=== PATIENT | male | born 1960 | race Caucasian/White ===

== ENCOUNTER 2019-02-17 14:45 | Emergency (ER) | payer BC, SELFPAY ==
[2019-02-17] MEDS ORDERED: Zofran 4 MG/2 ML VIAL IV ONE (14:49)
[2019-02-17] MEDS ORDERED: BABY ASPIRIN 81 MG CHEW PO ONE (14:49)
[2019-02-17] MEDS ORDERED: Sodium Chloride 0.9% 1000 ML 1,000 ML IV STA (14:49)
[2019-02-17] MEDS ORDERED: solu-MEDROL 125 MG IV ONE (14:50)
[2019-02-17] MEDS ORDERED: DUONEB 0.5-3 MG/3 ml Neb IH ONE ×4 (14:50→17:47)
[2019-02-17] MEDS ORDERED: TYLENOL EXTRA STRENGTH 500 MG PO STA (14:51)
[2019-02-17] MEDS ORDERED: MOTRIN 600 MG PO ONE (14:51)
--- NOTE | 2019-02-17 14:57 | ERPHSYRPT ---
- History of Present Illness Time Seen by Provider: 02/17/19 14:48 Source: patient Exam Limitations: no limitations Physician History: Patient is here with 3 days of flu-like symptoms. h/o smoking, no falls or trauma. He has generalized malaise, fever, cough, congestion. He denies any chest pain or neck pain. No signs or symptoms of meningitis. Location: generalized Quality: malaise Radiation: none Severity: moderate Duration: 3 days Timing: gradual Modifying factors/associated signs and symptoms: OTC home medication Allergies/Adverse Reactions: ciprofloxacin [From Cipro] Allergy (Verified 02/17/19 14:58) - Review of Systems Constitutional: Fever, Chills, Malaise Eyes: No Symptoms Ears, Nose, & Throat: Nose Congestion Respiratory: Cough, No Dyspnea Cardiac: No Chest Pain, No Edema, No Syncope Abdominal/Gastrointestinal: No Abdominal Pain, No Nausea, No Vomiting, No Diarrhea Genitourinary Symptoms: No Dysuria Musculoskeletal: No Back Pain, No Neck Pain Skin: No Rash Neurological: No Dizziness, No Focal Weakness, No Sensory Changes Psychological: No Symptoms Endocrine: No Symptoms All Other Systems: Reviewed and Negative - Nursing Vital Signs Nursing Vital Signs: Initial Vital Signs Temperature 101.7 F 02/17/19 14:52 Pulse Rate 97 H 02/17/19 14:52 Respiratory Rate 30 H 02/17/19 14:52 Blood Pressure 157/85 02/17/19 14:52 O2 Sat by Pulse Oximetry 93 L 02/17/19 14:52 Pain Scale Pain Intensity 4 - Physical Exam General Appearance: no apparent distress, alert Eye Exam: PERRL/EOMI, eyes nml inspection Ears, Nose, Throat Exam: normal ENT inspection, TMs normal, pharynx normal, moist mucous membranes Neck Exam: normal inspection, non-tender, supple, full range of motion Respiratory Exam: normal breath sounds, wheezing, No respiratory distress Cardiovascular Exam: regular rate/rhythm, normal heart sounds Gastrointestinal/Abdomen Exam: soft, No tenderness Back Exam: normal inspection, No CVA tenderness, No vertebral tenderness Extremity Exam: normal inspection, normal range of motion Neurologic Exam: alert, oriented x 3, cooperative, normal mood/affect, sensation nml, No motor deficits Skin Exam: normal color, warm, dry, No rash Lymphatic Exam: No adenopathy Ordered Tests: Active Orders 24 hr Category Date Time Status Admitting Representative STAT Care 02/17/19 14:50 Active EKG-ER Only STAT Care 02/17/19 14:49 Active IV Insertion STAT Care 02/17/19 14:49 Active ABDOMEN AND PELVIS W CONTRAST [CT] Stat Exams 02/17/19 16:08 Taken CHEST 2 VIEWS (PA AND LAT) Stat Exams 02/17/19 14:49 Taken CHEST WITH CONTRAST [CT] Stat Exams 02/17/19 16:07 Taken ARTERIAL BLOOD GASES Stat Lab 02/17/19 14:50 Completed CBC W DIFF Stat Lab 02/17/19 15:10 Completed CMP Stat Lab 02/17/19 15:10 Completed Manual Differential NC Stat Lab 02/17/19 15:10 Completed NT PRO BNP Stat Lab 02/17/19 15:10 Completed TROPONIN Q3H Lab 02/17/19 15:10 Completed TROPONIN Q3H Lab 02/17/19 18:48 Received TROPONIN Q3H Lab 02/17/19 21:00 Ordered TROPONIN Q3H Lab 02/18/19 00:00 Ordered TROPONIN Q3H Lab 02/18/19 03:00 Ordered Peak Expiratory Flow Rate ONCE RT 02/17/19 15:54 Completed Respiratory Therapy Assessment DAILY RT 02/17/19 15:54 Completed Medication Summary Discontinued Medications Generic Name Dose Route Start Last Admin Trade Name Freq PRN Reason Stop Dose Admin Acetaminophen 1,000 mg 02/17/19 14:51 02/17/19 15:17 Tylenol Extra Strength 500 Mg PO 02/17/19 14:52 1,000 mg STAT STA Administration Acetaminophen Confirm 02/17/19 15:13 Tylenol Extra Strength 500 Mg Administered 02/17/19 15:14 Dose 1,000 mg .ROUTE .STK-MED ONE Albuterol/Ipratropium 3 ml 02/17/19 14:50 02/17/19 15:51 Duoneb 0.5-3 Mg/3 Ml Neb IH 02/17/19 14:51 3 ml STAT ONE Administration Albuterol/Ipratropium Confirm 02/17/19 15:24 Duoneb 0.5-3 Mg/3 Ml Neb Administered 02/17/19 15:25 Dose 3 ml IH .STK-MED ONE Albuterol/Ipratropium 3 ml 02/17/19 17:36 02/17/19 18:00 Duoneb 0.5-3 Mg/3 Ml Neb IH 02/17/19 17:37 3 ml STAT ONE Administration Albuterol/Ipratropium Confirm 02/17/19 17:47 Duoneb 0.5-3 Mg/3 Ml Neb Administered 02/17/19 17:48 Dose 3 ml IH .STK-MED ONE Aspirin 324 mg 02/17/19 14:49 02/17/19 15:17 Baby Aspirin 81 Mg Chew PO 02/17/19 14:50 324 mg STAT ONE Administration Aspirin Confirm 02/17/19 15:12 Baby Aspirin 81 Mg Chew Administered 02/17/19 15:13 Dose 324 mg .ROUTE .STK-MED ONE Sodium Chloride 1,000 mls @ 999 mls/hr 02/17/19 14:49 02/17/19 16:24 Sodium Chloride 0.9% 1000 Ml IV 02/17/19 15:49 Infused .Q1H1M STA Infusion Sodium Chloride Confirm 02/17/19 15:12 Sodium Chloride 0.9% 1000 Ml Administered 02/17/19 15:13 Dose 1,000 mls @ ud .ROUTE .STK-MED ONE Ibuprofen 600 mg 02/17/19 14:51 02/17/19 15:17 Motrin 600 Mg PO 02/17/19 14:52 600 mg STAT ONE Administration Ibuprofen Confirm 02/17/19 15:13 Motrin 600 Mg Administered 02/17/19 15:14 Dose 600 mg .ROUTE .STK-MED ONE Methylprednisolone Sodium Succinate 125 mg 02/17/19 14:50 02/17/19 15:16 Solu-Medrol 125 Mg IV 02/17/19 14:51 125 mg STAT ONE Administration Methylprednisolone Sodium Succinate Confirm 02/17/19 15:13 Solu-Medrol 125 Mg Administered 02/17/19 15:14 Dose 125 mg .ROUTE .STK-MED ONE Ondansetron HCl 4 mg 02/17/19 14:49 02/17/19 15:16 Zofran 4 Mg/2 Ml Vial IV 02/17/19 14:50 4 mg STAT ONE Administration Ondansetron HCl Confirm 02/17/19 15:12 Zofran 4 Mg/2 Ml Vial Administered 02/17/19 15:13 Dose 4 mg .ROUTE .STK-MED ONE Lab/Rad Data: Laboratory Result Diagrams 02/17/19 15:10 02/17/19 15:10 Laboratory Results 02/17/19 02/17/19 02/17/19 Range/Units 15:10 15:10 15:10 WBC 10.6 H (4.0-10.5) K/mm3 RBC 5.18 (4.1-5.6) M/mm3 Hgb 13.9 (12.5-18.0) gm/dl Hct 43.5 (42-50) % MCV 84.0 (78-100) fl MCH 26.8 (26-32) pg MCHC 32.0 (32-36) g/dl RDW 15.0 H (11.5-14.0) % Plt Count 337 (150-450) K/mm3 MPV 11.2 H (7.5-11.0) fl Segmented Neutrophils 56 (36.-66.) % Band Neutrophils 20 H (0.0-2.0) % Lymphocytes (Manual) 12 L (24-44) % Monocytes (Manual) 12 (0.0-12.0) % Platelet Estimate NORMAL (NORMAL) RBC Morphology NORMAL Puncture Site pCO2 (35-45) mmHg pO2 (75-100) mmHg Base Excess (-2.0-2.0) O2 Saturation (94-100) g/dF ABG pH (7.35-7.45) ABG HCO3 (22-28) ABG O2 Sat (Measured) (95-100) % Abraham Test A-a Gradient a/A Ratio Hemoglobin Carboxyhemoglobin (0.0-6.9) % THgb Methemoglobin (1.4-1.5) % Potassium 4.2 (3.5-5.1) Temperature C POC O2 Flow Rate % Sodium 139 (137-145) mmol/L Chloride 100 (98-107) mmol/L Carbon Dioxide 25 (22-30) mmol/L Anion Gap 19.0 H (5-15) MEQ/L BUN 16 (9-20) mg/dL Creatinine 0.92 (0.66-1.25) mg/dL Estimated GFR > 60.0 ML/MIN Glucose 168 H (74-106) mg/dL Calcium 10.3 H (8.4-10.2) mg/dL Total Bilirubin 2.20 H (0.2-1.3) mg/dL AST 29 (17-59) U/L ALT 16 (0-50) U/L Alkaline Phosphatase 82 (38-126) U/L Troponin I < 0.012 (0.000-0.034) ng/mL NT-Pro-B Natriuret Pep 301 (0-900) pg/mL Serum Total Protein 9.9 H (6.3-8.2) g/dL Albumin 4.8 (3.5-5.0) g/dL Influenza Type A Ag (NEGATIVE) Influenza Type B Ag (NEGATIVE) RSV (PCR) (Negative) 02/17/19 02/17/19 Range/Units 14:50 14:45 WBC (4.0-10.5) K/mm3 RBC (4.1-5.6) M/mm3 Hgb (12.5-18.0) gm/dl Hct (42-50) % MCV (78-100) fl MCH (26-32) pg MCHC (32-36) g/dl RDW (11.5-14.0) % Plt Count (150-450) K/mm3 MPV (7.5-11.0) fl Segmented Neutrophils (36.-66.) % Band Neutrophils (0.0-2.0) % Lymphocytes (Manual) (24-44) % Monocytes (Manual) (0.0-12.0) % Platelet Estimate (NORMAL) RBC Morphology Puncture Site LEFT BRACHIAL pCO2 31 L (35-45) mmHg pO2 59 L (75-100) mmHg Base Excess 1.0 (-2.0-2.0) O2 Saturation 92.5 L (94-100) g/dF ABG pH 7.49 H (7.35-7.45) ABG HCO3 23.6 (22-28) ABG O2 Sat (Measured) 93.2 L (95-100) % Abraham Test NOT APPLICABLE A-a Gradient 52 a/A Ratio 0.53 Hemoglobin 13.2 Carboxyhemoglobin 0.6 (0.0-6.9) % THgb Methemoglobin 0.2 L (1.4-1.5) % Potassium 4.1 (3.5-5.1) Temperature 37.0 C POC O2 Flow Rate 21 % Sodium (137-145) mmol/L Chloride (98-107) mmol/L Carbon Dioxide (22-30) mmol/L Anion Gap (5-15) MEQ/L BUN (9-20) mg/dL Creatinine (0.66-1.25) mg/dL Estimated GFR ML/MIN Glucose (74-106) mg/dL Calcium (8.4-10.2) mg/dL Total Bilirubin (0.2-1.3) mg/dL AST (17-59) U/L ALT (0-50) U/L Alkaline Phosphatase (38-126) U/L Troponin I (0.000-0.034) ng/mL NT-Pro-B Natriuret Pep (0-900) pg/mL Serum Total Protein (6.3-8.2) g/dL Albumin (3.5-5.0) g/dL Influenza Type A Ag NEGATIVE (NEGATIVE) Influenza Type B Ag NEGATIVE (NEGATIVE) RSV (PCR) NEGATIVE (Negative) - Progress Progress: improved Air Movement: good Progress Note: 02/17/19 14:56 - We'll obtain basic labs, fluids, EKG, troponin, chest x-ray - I feel comfortable with one time negative troponin given symptoms have improved and started greater then 6 hours ago. - EKG shows no ST changes - my read. See full read below. - CXR shows no pneumonia, pneumothorax - my read - fluids, breathing treatment, steroids - O2 saturations consistently greater than 95%. 02/17/19 19:01 We did obtain a CT scan of chest and abdomen. Patient has possible PNA on CT scan. He has several pulmonary nodules. I did discuss this with the patient. He has follow up with his pulmonoloigst this week. He will return here for any new or changing symptoms. - Departure Departure Disposition: Home Clinical Impression: PNA (pneumonia) Condition: Stable Critical Care Time: No Referrals: DOMINIQUE GABRIEL [Primary Care Provider] - Instructions: Pneumonia, Adult (DC), Cough, Adult (DC) Prescriptions: Azithromycin 250 mg [Zithromax 250 MG TABLET] 250 mg PO ZPACK #6 tablet Levofloxacin [Levaquin 500 MG Tablet] 750 mg PO DAILY #7 tablet
[2019-02-17] MEDS ORDERED: Zofran 4 MG/2 ML VIAL ONE (15:12)
[2019-02-17] MEDS ORDERED: BABY ASPIRIN 81 MG CHEW ONE (15:12)
[2019-02-17] MEDS ORDERED: Sodium Chloride 0.9% 1000 ML 1,000 ML ONE (15:12)
[2019-02-17] MEDS ORDERED: solu-MEDROL 125 MG ONE (15:13)
[2019-02-17] MEDS ORDERED: TYLENOL EXTRA STRENGTH 500 MG ONE (15:13)
[2019-02-17] MEDS ORDERED: MOTRIN 600 MG ONE (15:13)
[2019-02-17 15:25] LABS: Hematocrit 43.5 % (42-50); Hemoglobin 13.9 gm/dl (12.5-18.0); Mean Corpuscular Hemoglobin 26.8 pg (26-32); Mean Platelet Volume 11.2 fl (7.5-11.0); Platelet Count 337 K/mm3 (150-450); Red Blood Count 5.18 M/mm3 (4.1-5.6); White Blood Count 10.6 K/mm3 (4.0-10.5)
[2019-02-17 15:37] LABS: A-aADO2 52; ABG HEMOGLOBIN 13.2; ABG POTASSIUM 4.1 (3.5-5.1); ARTERIAL BLD GAS O2 SATURATION 93.2 % (95-100); ARTERIAL BLOOD GAS FIO2 21 %; ARTERIAL BLOOD GAS PCO2 31 mmHg (35-45); ARTERIAL BLOOD GAS PO2 59 mmHg (75-100); ARTERIAL BLOOD GAS pH 7.49 (7.35-7.45); CARBOXYHEMOGLOBIN 0.6 % THgb (0.0-6.9); HCO3- 23.6 (22-28); HGB O2 SAT 92.5 g/dF (94-100); Methhemoglobin 0.2 % (1.4-1.5); paO2 pAO1 0.53
[2019-02-17 15:38] LABS: ABG SITE LEFT BRACHIAL
[2019-02-17 15:40] LABS: INFLUENZA A NEGATIVE (NEGATIVE); INFLUENZA B NEGATIVE (NEGATIVE); RESPIRATORY SYNCTIAL VIRUS NEGATIVE (Negative)
[2019-02-17 15:49] LABS: ALBUMIN 4.8 g/dL (3.5-5.0); ALKALINE PHOSPHATASE 82 U/L (38-126); BLOOD UREA NITROGEN 16 mg/dL (9-20); CHLORIDE 100 mmol/L (98-107); Calcium 10.3 mg/dL (8.4-10.2); Carbon Dioxide 25 mmol/L (22-30); Creatinine 1 0.92 mg/dL (0.66-1.25); Glucose 168 mg/dL (74-106); NT PRO BNP 301 pg/mL (0-900); Potassium 4.2 mmol/L (3.5-5.1); SGOT/AST 29 U/L (17-59); SGPT/ALT 16 U/L (0-50); SODIUM 139 mmol/L (137-145); Total Protein 9.9 g/dL (6.3-8.2)
[2019-02-17 16:00] LABS: BAND 20 % (0.0-2.0); Lymphocytes 12 % (24-44); Monocyte 12 % (0.0-12.0); Neutrophils 56 % (36.-66.); Platelet Estimate NORMAL (NORMAL); Total Cells Counted 100
[2019-02-17] MEDS ORDERED: Zithromax 250 MG TABLET PO ONE (19:10)
[2019-02-17] MEDS ORDERED: Levofloxacin 250MG Tablet PO ONE (19:11)
[2019-02-17] MEDS ORDERED: Levofloxacin 250MG Tablet ONE (19:13)
[2019-02-17] MEDS ORDERED: Zithromax 250 MG TABLET ONE (19:13)
[2019-02-17 19:22] VITALS: BP 132/74; PULSE 81; O2SAT 98
--- NOTE | 2019-02-17 19:46 | XRAY ---
Indication: Short of breath. Productive cough and congestion 3 days. Multiple contiguous axial images obtained through the chest using 100 cc Isovue 370 contrast. Comparison: None Study slightly degraded by respiration artifact. Minimal tree-in-bud opacity seen in the periphery of both upper lobes favor pneumonitis. Minimal atelectasis/scarring in the posterior right upper lobe. No consolidation or effusion. Lateral left lower lobe demonstrates two sub-5 mm peripheral and one right lower lobe subpleural noncalcified micronodules. Heart is not enlarged. Aorta is normal in course and caliber. Left suprahilar calcified node. No pathologic mediastinal/hilar lymphadenopathy. Bony thorax intact with minimal degenerative changes throughout the spine. CT abdomen/pelvis reported separately. Impression: 1. Minimal bilateral upper lobe [id number] opacities favor pneumonitis. 2. Peripheral left and right lower lobe noncalcified micronodules. Findings possibly granulomatous in this demographic and given left hilar calcified myeloma. Consider follow-up per Fleischner guidelines. Comment: Preliminary interpretation was made by [facility]. No critical discrepancy.
--- NOTE | 2019-02-17 19:52 | XRAY ---
Indication: Productive cough/congestion 3 days. Short of breath. Elevated bilirubin. Multiple contiguous axial images obtained through the abdomen and pelvis using 100 cc Isovue 370 contrast only. Comparison: None CT chest reported separately. Noncontrasted stomach and bowel loops appear nonobstructed. Normal appendix. There is mild/moderate scattered fecal debris throughout including the rectum. No free fluid/air. Mild fatty hepatomegaly and calcified splenic granulomas. 4 mm right lower renal cortical cyst. Remaining liver, gallbladder, pancreas, spleen, adrenal glands, kidneys, ureters, and bladder appear unremarkable. Mild scattered aortoiliac calcifications. 3.8 cm infrarenal AAA. Osseous structures intact with minimal degenerative changes throughout the spine. Impression: 1. Diffuse fecal stasis without obstruction. 2. Scattered arteriosclerotic disease with 3.8 cm distal AAA. 3. Fatty hepatomegaly, tiny right renal cyst, and evidence for old granulomatous disease. Comment: Preliminary interpretation was made by [facility]. No critical discrepancy.
--- NOTE | 2019-02-17 19:54 | XRAY ---
Indication: Productive cough and congestion for 3 days. Comparison: November 17, 2012. PA/lateral chest again hyperinflated. There is now mild scattered bilateral interstitial opacities, possible pneumonitis. No focal infiltrate, consolidation, or large effusion. Heart is not enlarged. Stable left suprahilar calcified node. Bony thorax intact again with minimal degenerative changes. Impression: 1. New bilateral interstitial opacities, possible pneumonitis in the right clinical setting. 2. Stable COPD and evidence for old granulomatous disease.
== END 2019-02-17 19:20 | disposition home or self-care (01) ==
LOC: ED 14:45
DX: J18.9 Pneumonia, unspecified organism (principal)
CPT/HCPCS: 36415; 36600; 71046; 71260; 74177; 80053; 82375; 82803; 83880; 84484; 85025; 87631; 93005; 93041; 94150; 94640; 96360; 96374; 96375; 99284; J2405; J2930; A9270-GY

== ENCOUNTER 2021-11-21 13:06 | Observation (INO) | payer BC ==
[2021-11-21] MEDS ORDERED: solu-MEDROL 125 MG, Sterile H2O 10 ml 2 ML IV ONE ×2 (13:25)
[2021-11-21] MEDS ORDERED: DUONEB 0.5-3 MG/3 ml Neb IH ONE ×2 (13:25→13:33)
[2021-11-21] MEDS ORDERED: ROCEPHIN 2 Gm-D5w 50ML BAG** 2 G/50 ML IVPB IV STA (13:26)
[2021-11-21] MEDS ORDERED: Zithromax 500 MG/ 250 ML NaCl Premix 500 MG/250 ML IVPB IV STA (13:26)
[2021-11-21 14:03] LABS: Absolute Neutrophil Ct (ANC) 8.09 x10^3/uL (1.4-6.9); Basophil (Absolute #) 0.02 x10^3/uL (0-0.4); Eosinophil % 0.1 % (0.00-5.0); Eosinophil (Absolute #) 0.01 x10^3/uL (0-0.5); Hematocrit 43.4 % (42-50); Hemoglobin 13.2 g/dL (12.5-18.0); Lymphocyte (Absolute #) 0.84 x10^3/uL (1.0-4.6); Lymphocytes % 7.9 % (24.0-44.0); Mean Cell Volume 84.8 fL (78-100); Mean Corpuscular Hemoglobin 25.8 pg (26-32); Mean Corpuscular Hgb Concent. 30.4 g/dL (32-36); Mean Platelet Volume 10.8 fL (7.5-11.0); Monocyte (Absolute #) 1.65 x10^3/uL (0.0-1.3); Monocytes % 15.5 % (0.0-12.0); Neutrophil % 76.1 % (36.0-66.0); Platelet Count 287 x10^3/uL (150-450); Red Blood Count 5.12 x10^6/uL (4.1-5.6); Red Cell Distribution Width 14.4 % (11.5-14.0); White Blood Count 10.6 x10^3/uL (4.0-10.5)
[2021-11-21] MEDS ORDERED: ROCEPHIN 1 Gm-D5w 50 ml Bag** 0 G/0 ML IVPB IV ONE (14:12)
[2021-11-21] MEDS ORDERED: Sterile H2O 10 ml IJ ONE ×2 (14:12→23:27)
[2021-11-21] MEDS ORDERED: solu-MEDROL ONE ×3 (14:12→23:27)
[2021-11-21] MEDS ORDERED: ROCEPHIN 2 Gm-D5w 50ML BAG** 2 G/50 ML IVPB IV ONE (14:13)
[2021-11-21 14:24] LABS: ALBUMIN 4.3 g/dL (3.5-5.0); ALKALINE PHOSPHATASE 81 U/L (38-126); ANION GAP 17.4 MEQ/L (5-15); BLOOD UREA NITROGEN 15 mg/dL (9-20); CHLORIDE 96 mmol/L (98-107); Calcium 9.2 mg/dL (8.4-10.2); Carbon Dioxide 27 mmol/L (22-30); Creatinine 1 0.79 mg/dL (0.66-1.25); EST GLOMERULAR FILTRATION RATE > 60.0 ML/MIN; Glucose 172 mg/dL (74-106); NT PRO BNP 376 pg/mL (0-900); Potassium 3.9 mmol/L (3.5-5.1); SGOT/AST 20 U/L (17-59); SGPT/ALT 17 U/L (0-50); SODIUM 137 mmol/L (137-145); Total Protein 8.4 g/dL (6.3-8.2)
[2021-11-21 14:42] LABS: INFLUENZA A NEGATIVE (NEGATIVE); INFLUENZA B NEGATIVE (NEGATIVE); RESPIRATORY SYNCTIAL VIRUS NEGATIVE (Negative); SARS-CoV-2 Xpert Express NEGATIVE (NEGATIVE)
[2021-11-21] MEDS ORDERED: Zithromax 500 MG/ 250 ML NaCl Premix 500 MG/250 ML IVPB IV ONE (15:00)
--- NOTE | 2021-11-21 15:48 | ERPHSYRPT ---
- History of Present Illness Time Seen by Provider: 11/21/21 13:12 Source: patient Exam Limitations: no limitations Patient Subjective Stated Complaint: pt here for cough, low grade fever, sob for 5 days now, was sent here from clinic. Triage Nursing Assessment: pt arrived per wc , resp labored with movement, coughing green sputum, face mask in place, skin w/d/p, no edema noted. sob with excertion, Physician History: 61 years old male with history of coronary artery disease status post stenting, pacemaker placement, hypertension, hyperlipidemia, diabetes mellitus, COPD presented in the ER from urgent care with worsening shortness of breath. Patient reports he has been having URI symptoms with progressive worsening and now having more cough productive of yellow-green sputum copious in amount. Shortness of breath gets worse with activity and some improvement with resting. Patient reports having resting oxygen saturation is 90% on room air resting. Also reports low-grade fever with a T-max of 102 for the last 3 days. Timing/Duration: day(s) (3), gradual onset, worse Activities at Onset: activity, rest Severity of Dyspnea-Max: moderate Severity of Dyspnea-Current: moderate Possible Cause: no prior episodes Modifying Factors: Improves With: rest. Worsens With: activity, coughing, deep breath, exertion Associated Symptoms: cough, fever, wheezing, heaviness, productive cough, sweating, tightness Allergies/Adverse Reactions: ciprofloxacin [From Cipro] Allergy (Verified 11/21/21 13:19) Home Medications: Aspirin EC 81 mg [Ecotrin 81 mg] 81 mg PO DAILY 11/21/21 [History] Atorvastatin Calcium [Lipitor 40Mg] 40 mg PO DAILY 11/21/21 [History] Bisacodyl [Gentle Laxative] 5 mg PO DAILY PRN 11/21/21 [History] Ca/D3/Mag/Zinc/Naomi/Mustapha/Mgbor [Caltrate 600-D3-Min Chew Tab] 1 ea DAILY 11/21/21 [History] Clopidogrel Bisulfate [Plavix] 75 mg PO DAILY 11/21/21 [History] Dapagliflozin Propanediol [Farxiga] 1 ea DAILY 11/21/21 [History] Etodolac 400 mg [Lodine 400 mg] 1 ea DAILY 11/21/21 [History] Insulin NPH Human Isophane [Novolin N] 55 unit SQ DAILY 11/21/21 [History] Metformin HCl 500 mg [Glucophage 500 MG] 1,000 mg PO BIDWM 11/21/21 [History] Metoprolol Tartrate 25 mg [Lopressor 25MG Tab] 25 mg PO BID 11/21/21 [History] lisinopriL [Zestril] 2.5 mg PO DAILY 11/21/21 [History] Hx Influenza Vaccination/Date Given: Yes Hx Pneumococcal Vaccination/Date Given: No Travel Risk - International Travel Have you traveled outside of the country in past 3 weeks: No - Coronavirus Screening Are you exhibiting any of the following symptoms?: Yes Symptoms: Cough: New Onset, Shortness of Breath - Vaccine Status Have you recieved a Covid-19 vaccination: Yes School [employer]: Moderna - Vaccination Dates Date of 2cond Vaccination (if applicable): 2020 - Review of Systems Constitutional: Fever, Chills, Fatigue, Weakness Eyes: No Symptoms Ears, Nose, & Throat: Nose Congestion Respiratory: Cough, Dyspnea, Dyspnea on Exertion (FERRELL), Wheezing Cardiac: No Symptoms Abdominal/Gastrointestinal: No Symptoms Genitourinary Symptoms: No Symptoms Musculoskeletal: Arthralgias, Back Pain Skin: No Symptoms Neurological: No Symptoms Psychological: No Symptoms Endocrine: No Symptoms Hematologic/Lymphatic: No Symptoms Immunological/Allergic: No Symptoms - Past Medical History Cardiac History: Coronary Artery Disease, Hypertension Respiratory History: COPD Endocrine Medical History: Diabetes Type II - Past Surgical History Past Surgical History: Yes Cardiac: Cardiac Catheterization, Cardiac Stent - Social History Smoking Status: Former smoker Exposure to second hand smoke: No Drug Use: none Patient Lives Alone: No - Nursing Vital Signs Nursing Vital Signs: Initial Vital Signs Temperature 98.7 F 11/21/21 13:09 Pulse Rate 118 H 11/21/21 13:09 Respiratory Rate 24 11/21/21 13:09 Blood Pressure 141/81 11/21/21 13:09 O2 Sat by Pulse Oximetry 92 L 11/21/21 13:09 Pain Scale Pain Intensity 3 - Physical Exam General Appearance: no apparent distress Eye Exam: PERRL/EOMI, eyes nml inspection Ears, Nose, Throat Exam: hearing grossly normal, nasal congestion, pharyngeal erythema Neck Exam: normal inspection, non-tender, supple, full range of motion Respiratory Exam: diminished breath sounds, accessory muscle use, rhonchi, wheezing Cardiovascular/Chest Exam: normal heart sounds, tachycardia Abdominal/Gastrointestinal Exam: soft, normal bowel sounds, No tenderness Extremity Exam: non-tender, normal range of motion Neurologic Exam: alert, oriented x 3, cooperative Skin Exam: normal color SpO2 Interpretation: O2 applied SpO2: 94 O2 Delivery: Nasal Cannula (4 L) - Course EKG Interpreted by Me: RATE ([id number]), Sinus Tach, LAFB, Right Bundle Branch Block, Non-specific ST Changes Ordered Tests: Active Orders 24 hr Category Date Time Status Medical Accountant STAT Care 11/21/21 13:25 Active EKG-ER Only STAT Care 11/21/21 13:25 Active IV Insertion STAT Care 11/21/21 13:25 Active Oxygen-ED Only Nasal Cannula 2 lpm Care 11/21/21 13:25 Active CHEST 1 VIEW (PORTABLE) Stat Exams 11/21/21 13:43 Taken CHEST WITH CONTRAST [CT] Stat Exams 11/21/21 16:19 Taken BLOOD CULTURE Stat Lab 11/21/21 13:49 Received CBC W DIFF Stat Lab 11/21/21 13:25 Completed CMP Stat Lab 11/21/21 13:49 Completed Lactic Acid Stat Lab 11/21/21 13:50 Completed MAGNESIUM Stat Lab 11/21/21 13:49 Completed NT PRO BNP Stat Lab 11/21/21 13:49 Completed TROPONIN Q4H Lab 11/21/21 13:49 Completed TROPONIN Q4H Lab 11/21/21 17:30 Ordered TROPONIN Q4H Lab 11/21/21 21:30 Ordered Respiratory Therapy Assessment DAILY RT 11/21/21 13:41 Active Medication Summary Generic Name Dose Route Start Last Admin Trade Name Freq PRN Reason Stop Dose Admin Sodium Chloride 1,000 mls @ 999 mls/hr 11/21/21 17:17 11/21/21 17:20 Sodium Chloride 0.9% 1000 Ml IV 11/21/21 18:17 999 mls/hr .Q1H1M STA Administration Discontinued Medications Generic Name Dose Route Start Last Admin Trade Name Freq PRN Reason Stop Dose Admin Albuterol/Ipratropium 3 ml 11/21/21 13:25 11/21/21 13:40 Ipratropium/Albuterol Sulfate 3 Ml Ampul.Neb IH 11/21/21 13:26 3 ml STAT ONE Administration Albuterol/Ipratropium Confirm 11/21/21 13:33 Ipratropium/Albuterol Sulfate 3 Ml Ampul.Neb Administered 11/21/21 13:34 Dose 3 ml IH .STK-MED ONE Methylprednisolone Sodium 0 mg 11/21/21 13:25 11/21/21 14:12 Succinate 125 mg/ Sterile IV 11/21/21 13:26 125 mg Water 2 ml STAT ONE Administration Ceftriaxone Sodium/Dextrose 2 g in 50 mls @ 100 mls/hr 11/21/21 13:26 11/21/21 14:16 Rocephin 2 Gm-D5w 50ml Bag IV 11/21/21 13:55 200 ml/hr STAT STA 200 mls/hr Administration Azithromycin 500 mg in 250 mls @ 250 mls/hr 11/21/21 13:26 11/21/21 15:03 Zithromax 500 Mg/ 250 Ml Nacl Premix IV 11/21/21 14:25 250 ml/hr STAT STA 250 mls/hr Administration Ceftriaxone Sodium/Dextrose Confirm 11/21/21 14:12 Rocephin 1 Gm-D5w 50 Ml Bag Administered 11/21/21 14:13 Dose 1 g in 50 mls @ ud IV .STK-MED ONE Ceftriaxone Sodium/Dextrose Confirm 11/21/21 14:13 Rocephin 2 Gm-D5w 50ml Bag Administered 11/21/21 14:14 Dose 2 g in 50 mls @ ud IV .STK-MED ONE Azithromycin Confirm 11/21/21 15:00 Zithromax 500 Mg/ 250 Ml Nacl Premix Administered 11/21/21 15:01 Dose 500 mg in 250 mls @ ud IV .STK-MED ONE Sodium Chloride Confirm 11/21/21 17:19 Sodium Chloride 0.9% 1000 Ml Administered 11/21/21 17:20 Dose 1,000 mls @ ud .ROUTE .STK-MED ONE Methylprednisolone Sodium Succinate Confirm 11/21/21 14:12 Methylprednis Sod Succ 125 Mg/2 Ml Vial Administered 11/21/21 14:13 Dose 125 mg .ROUTE .STK-MED ONE Ondansetron HCl 4 mg 11/21/21 15:53 11/21/21 16:28 Ondansetron Hcl 4 Mg/2 Ml Vial IV 11/21/21 15:54 4 mg STAT ONE Administration Ondansetron HCl Confirm 11/21/21 15:55 Ondansetron Hcl 4 Mg/2 Ml Vial Administered 11/21/21 15:56 Dose 4 mg .ROUTE .[facility]-e27 ONE Sterile Water Confirm 11/21/21 14:12 Water For Injection,Sterile 10 Ml Vial Administered 11/21/21 14:13 Dose 10 ml IJ .TueeK-MED ONE Lab/Rad Data: Laboratory Result Diagrams 11/21/21 13:25 11/21/21 13:49 Laboratory Results 11/21/21 11/21/21 11/21/21 Range/Units 13:55 13:50 13:49 WBC (4.0-10.5) x10^3/uL RBC (4.1-5.6) x10^6/uL Hgb (12.5-18.0) g/dL Hct (42-50) % MCV (78-100) fL MCH (26-32) pg MCHC (32-36) g/dL RDW (11.5-14.0) % Plt Count (150-450) x10^3/uL MPV (7.5-11.0) fL Gran % (36.0-66.0) % Immature Gran % (Auto) (0.00-0.4) % Nucleat RBC Rel Count (0.00-0.1) % Eos # (Auto) (0-0.5) x10^3/uL Immature Gran # (Auto) (0.00-0.03) x10^3u/L Absolute Lymphs (auto) (1.0-4.6) x10^3/uL Absolute Monos (auto) (0.0-1.3) x10^3/uL Absolute Nucleated RBC (0.00-0.01) x10^3u/L Lymphocytes % (24.0-44.0) % Monocytes % (0.0-12.0) % Eosinophils % (0.00-5.0) % Basophils % (0.0-0.4) % Absolute Granulocytes (1.4-6.9) x10^3/uL Basophils # (0-0.4) x10^3/uL Sodium (137-145) mmol/L Potassium (3.5-5.1) mmol/L Chloride (98-107) mmol/L Carbon Dioxide (22-30) mmol/L Anion Gap (5-15) MEQ/L BUN (9-20) mg/dL Creatinine (0.66-1.25) mg/dL Estimated GFR ML/MIN Glucose (74-106) mg/dL Lactic Acid 1.5 (0.4-2.0) Calcium (8.4-10.2) mg/dL Magnesium (1.6-2.3) mg/dL Total Bilirubin (0.2-1.3) mg/dL AST (17-59) U/L ALT (0-50) U/L Alkaline Phosphatase (38-126) U/L Troponin I < 0.012 (0.000-0.034) ng/mL NT-Pro-B Natriuret Pep (0-900) pg/mL Serum Total Protein (6.3-8.2) g/dL Albumin (3.5-5.0) g/dL Influenza Type A Ag NEGATIVE (NEGATIVE) Influenza Type B Ag NEGATIVE (NEGATIVE) RSV (PCR) NEGATIVE (Negative) SARS-CoV-2 (PCR) NEGATIVE (NEGATIVE) 11/21/21 11/21/21 Range/Units 13:49 13:25 WBC 10.6 H (4.0-10.5) x10^3/uL RBC 5.12 (4.1-5.6) x10^6/uL Hgb 13.2 (12.5-18.0) g/dL Hct 43.4 (42-50) % MCV 84.8 (78-100) fL MCH 25.8 L (26-32) pg MCHC 30.4 L (32-36) g/dL RDW 14.4 H (11.5-14.0) % Plt Count 287 (150-450) x10^3/uL MPV 10.8 (7.5-11.0) fL Gran % 76.1 H (36.0-66.0) % Immature Gran % (Auto) 0.2 (0.00-0.4) % Nucleat RBC Rel Count 0.0 (0.00-0.1) % Eos # (Auto) 0.01 (0-0.5) x10^3/uL Immature Gran # (Auto) 0.02 (0.00-0.03) x10^3u/L Absolute Lymphs (auto) 0.84 L (1.0-4.6) x10^3/uL Absolute Monos (auto) 1.65 H (0.0-1.3) x10^3/uL Absolute Nucleated RBC 0.00 (0.00-0.01) x10^3u/L Lymphocytes % 7.9 L (24.0-44.0) % Monocytes % 15.5 H (0.0-12.0) % Eosinophils % 0.1 (0.00-5.0) % Basophils % 0.2 (0.0-0.4) % Absolute Granulocytes 8.09 H (1.4-6.9) x10^3/uL Basophils # 0.02 (0-0.4) x10^3/uL Sodium 137 (137-145) mmol/L Potassium 3.9 (3.5-5.1) mmol/L Chloride 96 L (98-107) mmol/L Carbon Dioxide 27 (22-30) mmol/L Anion Gap 17.4 H (5-15) MEQ/L BUN 15 (9-20) mg/dL Creatinine 0.79 (0.66-1.25) mg/dL Estimated GFR > 60.0 ML/MIN Glucose 172 H (74-106) mg/dL Lactic Acid (0.4-2.0) Calcium 9.2 (8.4-10.2) mg/dL Magnesium 2.0 (1.6-2.3) mg/dL Total Bilirubin 1.70 H (0.2-1.3) mg/dL AST 20 (17-59) U/L ALT 17 (0-50) U/L Alkaline Phosphatase 81 (38-126) U/L Troponin I (0.000-0.034) ng/mL NT-Pro-B Natriuret Pep 376 (0-900) pg/mL Serum Total Protein 8.4 H (6.3-8.2) g/dL Albumin 4.3 (3.5-5.0) g/dL Influenza Type A Ag (NEGATIVE) Influenza Type B Ag (NEGATIVE) RSV (PCR) (Negative) SARS-CoV-2 (PCR) (NEGATIVE) - Progress Progress: improved Air Movement: fair Progress Note: 11/21/21 17:34 61 years old with multiple medical problems is evaluated for worsening shortness of breath and cough. Patient resting oxygen was 90%. He is placed on 4 L oxygen and now around 90/95%. Given DuoNeb and Solu-Medrol, on reevaluation feeling a little better. Patient was tachycardic as well and given a fluid bolus. Patient x-ray showed questionable infiltrative process bilaterally and given a dose of Rocephin and Zithromax in here. Has a white count of 10, grossly unremarkable chemistries and negative troponin. Obtain CTA chest which did not show PE but bronchiectases and patient does have history of COPD and to bacco use in the past. Patient has abdominal aortic aneurysm which she is aware of and does not have any abdominal pain. Discussed with Dr. Lemus and patient is being admitted for IV antibiotics, steroids and neb treatments and will slowly wean off his oxygen. Blood Culture(s) Obtained: Yes Antibiotics given: Yes Discussed with Dr.: Raisa Will see patient in: hospital (full admit) Counseled pt/family regarding: lab results, diagnosis, rad results - Departure Departure Disposition: In-patient Admission Clinical Impression: Pneumonia Respiratory failure Qualifiers: Chronicity: acute Respiratory failure complication: hypoxia Qualified Code(s): J96.01 - Acute respiratory failure with hypoxia Condition: Stable Critical Care Time: No Referrals: DOMINIQUE GABRIEL [Primary Care Provider] - Follow up/PCP as directed
[2021-11-21] MEDS ORDERED: Zofran 4 MG/2 ML VIAL IV ONE (15:53)
[2021-11-21] MEDS ORDERED: Zofran 4 MG/2 ML VIAL ONE (15:55)
[2021-11-21] MEDS ORDERED: Sodium Chloride 0.9% 1000 ML 1,000 ML IV STA (17:17)
[2021-11-21] MEDS ORDERED: Sodium Chloride 0.9% 1000 ML 1,000 ML ONE (17:19)
[2021-11-21] MEDS ORDERED: Zofran 4 MG/2 ML VIAL IV PRN (17:42)
[2021-11-21] MEDS ORDERED: MORPHINE SULFATE 2 MG INJ IV PRN (17:42)
[2021-11-21] MEDS ORDERED: HUMALOG SQ PRN (17:42)
[2021-11-21] MEDS ORDERED: TYLENOL 325 MG PO PRN (17:42)
[2021-11-21] MEDS: solu-MEDROL 60 MG, Sterile H2O 10 ml 2 ML IV SCH ×4 (18:12→23:44)
[2021-11-21] MEDS ORDERED: ECOTRIN 81 MG PO ONE (18:30)
--- NOTE | 2021-11-21 18:50 | XRAY ---
Indication: Short of breath and dyspnea. History of COPD. Multiple contiguous axial images obtained through the chest using 100 cc Isovue 370 contrast and PE protocol. Comparison: February 17, 2019 Adequate opacification of the pulmonary arteries to include the lobar and segmental branches. No pulmonary embolus. Heart not enlarged with new left dual-lead pacemaker. Aorta mildly arteriosclerotic without aneurysm/dissection. No pathologic mediastinal/hilar lymphadenopathy. Lungs demonstrates mild diffuse pulmonary emphysema with mild bibasilar fibrosis/scarring. Stable right lower lobe noncalcified micronodule. Both lower lobes demonstrates new mild bronchial wall thickening favoring bronchitis. No consolidation or effusion. Bony thorax intact again with minimal degenerative changes throughout the spine. Limited upper abdomen demonstrates fatty liver and a few splenic calcified granulomas. Incompletely visualized AAA as seen on October 23, 2021 CT abdomen exam. Impression: 1. Negative pulmonary embolus. 2. Bilateral lower lobe bronchial wall thickening favoring bronchitis. 3. Chronic findings including pulmonary emphysema, benign right lower lobe noncalcified micronodule, fatty liver, and old granulomatous disease. Comment: Preliminary interpretation made by [facility]. No critical discrepancy.
--- NOTE | 2021-11-21 18:52 | XRAY ---
Indication: Fever, cough, and short of breath. History COPD. Comparison: February 17, 2019 Portable chest again demonstrates COPD and CIPD. No focal infiltrate, consolidation, or large effusion. Heart is not enlarged with new left dual-lead pacemaker. Bony thorax intact again with mild osteopenia and degenerative changes. Impression: Nonacute chest with chronic features.
[2021-11-21] MEDS ORDERED: DUONEB 0.5-3 MG/3 ml Neb IH SCH (19:00)
[2021-11-21] MEDS ORDERED: PROVENTIL 2.5 MG/3 ML NEB IH PRN (19:10)
[2021-11-21] MEDS: PLAVIX Tablet PO SCH (21:50)
[2021-11-21] MEDS: Lopressor 25MG Tab PO SCH (21:51)
[2021-11-21] MEDS: ZOCOR 20MG PO SCH (21:51)
[2021-11-21] MEDS: Zestril 5 MG PO SCH (21:51)
[2021-11-21] MEDS: HUMALOG SQ PRN (21:52)
[2021-11-21] MEDS: Novolin N SQ SCH (21:52)
[2021-11-22 06:11] LABS: Absolute Neutrophil Ct (ANC) 8.62 x10^3/uL (1.4-6.9); Basophil (Absolute #) 0.02 x10^3/uL (0-0.4); Eosinophil (Absolute #) 0 x10^3/uL (0-0.5); Hematocrit 41.6 % (42-50); Hemoglobin 12.6 g/dL (12.5-18.0); Lymphocyte (Absolute #) 0.66 x10^3/uL (1.0-4.6); Lymphocytes % 6.7 % (24.0-44.0); Mean Cell Volume 85.4 fL (78-100); Mean Corpuscular Hemoglobin 25.9 pg (26-32); Mean Corpuscular Hgb Concent. 30.3 g/dL (32-36); Mean Platelet Volume 10.9 fL (7.5-11.0); Monocyte (Absolute #) 0.46 x10^3/uL (0.0-1.3); Monocytes % 4.7 % (0.0-12.0); Platelet Count 296 x10^3/uL (150-450); Red Blood Count 4.87 x10^6/uL (4.1-5.6); Red Cell Distribution Width 14.6 % (11.5-14.0); White Blood Count 9.8 x10^3/uL (4.0-10.5)
[2021-11-22] MEDS ORDERED: solu-MEDROL ONE ×2 (06:19→16:25)
[2021-11-22] MEDS: solu-MEDROL 60 MG, Sterile H2O 10 ml 2 ML IV SCH ×6 (06:32→17:15)
[2021-11-22 06:47] LABS: ALKALINE PHOSPHATASE 73 U/L (38-126); ANION GAP 15.5 MEQ/L (5-15); BLOOD UREA NITROGEN 22 mg/dL (9-20); CHLORIDE 99 mmol/L (98-107); Calcium 8.8 mg/dL (8.4-10.2); Carbon Dioxide 29 mmol/L (22-30); Creatinine 1 0.75 mg/dL (0.66-1.25); EST GLOMERULAR FILTRATION RATE > 60.0 ML/MIN; Glucose 194 mg/dL (74-106); Potassium 4.2 mmol/L (3.5-5.1); SGOT/AST 21 U/L (17-59); SGPT/ALT 18 U/L (0-50); SODIUM 139 mmol/L (137-145); Total Protein 7.8 g/dL (6.3-8.2)
[2021-11-22] MEDS ORDERED: DULCOLAX 5 MG PO PRN (08:10)
[2021-11-22] MEDS: ROCEPHIN 2 Gm-D5w 50ML BAG** 2 G/50 ML IVPB IV SCH (08:25)
[2021-11-22] MEDS: PROTONIX 40 MG IV IV SCH (08:25)
[2021-11-22] MEDS: Lopressor 25MG Tab PO SCH ×2 (08:25→21:14)
[2021-11-22] MEDS: Calcium 500MG W/Vit D Tablet PO SCH (08:25)
[2021-11-22] MEDS: ECOTRIN 81 MG PO SCH (08:25)
[2021-11-22] MEDS: Zithromax 500 MG/ 250 ML NaCl Premix 500 MG/250 ML IVPB IV SCH (08:59)
[2021-11-22] MEDS ORDERED: [UNRECOGNIZED DRUG - MIXTURE] PO SCH (10:00)
[2021-11-22] MEDS ORDERED: NON-FORMULARY ITEM (Dapagliflozin Propanediol [Farxiga] 5 MG Tablet) PO SCH (10:00)
--- NOTE | 2021-11-22 11:53 | PCM.HP ---
History of Present Illness - Chief Complaint Chief Complaint: PNEUMONIA History of Present Illness: is a 61 year old male patient of Dr Deonna Calabrese who presented to ER with worsening of cough fever and shortness of breath. Chest CT showed bilateral basilar bronchitis and emphysema,clinically appears to be pneumonia. Patient was admitted to [facility] on IV solumedrol,Zithromax and Rocephin. He has improved over night. PMHx includes HTN,HLD,CAD(S/P Stents). DM2, COPD/former smoker, AAA followed by Dr De Souza and has appt with him tomorrow afternoon. - Review of Systems Constitutional: Fever, Chills, Fatigue, Weakness Eyes: No Symptoms Ears, Nose, & Throat: No Symptoms Respiratory: Cough, Short Of Breath Cardiac: No Symptoms Abdominal/Gastrointestinal: Constipation Genitourinary Symptoms: No Symptoms Musculoskeletal: Other (states strain left low abd) Skin: No Symptoms Neurological: Other (Hx TIA OCT 2021 resolved RLE weakness,still has trouble with word finding and mild memory issues) Endocrine: Other ("hot flashes") Hematologic/Lymphatic: No Symptoms Immunological/Allergic: No Symptoms Medications & Allergies Home Medications: Home Medication List Aspirin EC 81 mg [Ecotrin 81 mg] 81 mg PO DAILY 11/21/21 [History Confirmed 11/21/21] Atorvastatin Calcium [Lipitor 40Mg] 40 mg PO HS 11/21/21 [History Confirmed 11/21/21] Bisacodyl [Gentle Laxative] 5 mg PO DAILY PRN 11/21/21 [History Confirmed 11/21/21] Ca/D3/Mag/Zinc/Naomi/Mustapha/Mgbor [Caltrate 600-D3-Min Chew Tab] 1 tab PO DAILY 11/21/21 [History Confirmed 11/22/21] Clopidogrel Bisulfate [Plavix] 75 mg PO HS 11/21/21 [History Confirmed 11/21/21] Dapagliflozin Propanediol [Farxiga] 5 mg PO DAILY 11/21/21 [History Confirmed 11/21/21] Insulin NPH Human Isophane [Novolin N] 55 unit SQ HS 11/21/21 [History Confirmed 11/21/21] Metformin HCl 500 mg [Glucophage 500 MG] 1,000 mg PO BIDWM 11/21/21 [History Confirmed 11/21/21] Metoprolol Tartrate 25 mg [Lopressor 25MG Tab] 25 mg PO BID 11/21/21 [History Confirmed 11/21/21] lisinopriL [Zestril] 2.5 mg PO HS 11/21/21 [History Confirmed 11/21/21] Allergies/Adverse Reactions: Allergies Allergy/AdvReac Type Severity Reaction Status Date / Time ciprofloxacin [From Cipro] Allergy Verified 11/21/21 13:19 - Past Medical History Cardiac History: Coronary Artery Disease, Hypertension Respiratory History: COPD Endocrine Medical History: Diabetes Type II - Past Surgical History Past Surgical History: Yes Cardiac History: Cardiac Catheterization, Cardiac Stent - Social History Smoking Status: Never smoker Exposure to second hand smoke: No Alcohol: None Drug Use: none - Physical Exam Vital Signs: Vital Signs - 24 hr Temp Pulse Resp BP Pulse Ox 11/22/21 08:00 97.8 F 85 23 124/69 93 L 11/22/21 07:41 82 20 95 11/22/21 04:00 98.0 F 80 23 98/64 92 L 11/21/21 23:53 97.7 F 91 H 25 H 111/58 93 L 11/21/21 19:30 97.7 F 102 H 18 126/63 95 11/21/21 18:50 105 H 18 98 11/21/21 17:53 97.8 F 95 H 25 H 129/71 97 11/21/21 17:38 94 L 11/21/21 17:22 99 H 18 98 11/21/21 16:29 105 H 18 94 L 11/21/21 15:05 113 H 18 144/87 94 L 11/21/21 13:40 117 H 20 93 L 11/21/21 13:09 98.7 F 118 H 24 141/81 92 L Oxygen-Last 24 hours Oxygen Flowrate (L/min)-RT 4 General Appearance: no apparent distress Neurologic Exam: alert, oriented x 3, cooperative, normal mood/affect Eye Exam: eyes nml inspection Ears, Nose, Throat Exam: normal ENT inspection, moist mucous membranes Neck Exam: normal inspection Respiratory Exam: diminished breath sounds, other (reactive airways nonproductive cough after deep breaths) Cardiovascular Exam: regular rate/rhythm Gastrointestinal/Abdomen Exam: soft (nontender) Rectal Exam: not done Back Exam: normal inspection Extremity Exam: normal inspection Skin Exam: normal color, warm, dry Results - Labs Lab/Micro Results: Lab Results-Last 24 Hours 11/21/21 11/21/21 11/21/21 Range/Units 13:25 13:49 13:49 WBC 10.6 H (4.0-10.5) x10^3/uL RBC 5.12 (4.1-5.6) x10^6/uL Hgb 13.2 (12.5-18.0) g/dL Hct 43.4 (42-50) % MCV 84.8 (78-100) fL MCH 25.8 L (26-32) pg MCHC 30.4 L (32-36) g/dL RDW 14.4 H (11.5-14.0) % Plt Count 287 (150-450) x10^3/uL MPV 10.8 (7.5-11.0) fL Gran % 76.1 H (36.0-66.0) % Immature Gran % (Auto) 0.2 (0.00-0.4) % Nucleat RBC Rel Count 0.0 (0.00-0.1) % Eos # (Auto) 0.01 (0-0.5) x10^3/uL Immature Gran # (Auto) 0.02 (0.00-0.03) x10^3u/L Absolute Lymphs (auto) 0.84 L (1.0-4.6) x10^3/uL Absolute Monos (auto) 1.65 H (0.0-1.3) x10^3/uL Absolute Nucleated RBC 0.00 (0.00-0.01) x10^3u/L Lymphocytes % 7.9 L (24.0-44.0) % Monocytes % 15.5 H (0.0-12.0) % Eosinophils % 0.1 (0.00-5.0) % Basophils % 0.2 (0.0-0.4) % Absolute Granulocytes 8.09 H (1.4-6.9) x10^3/uL Basophils # 0.02 (0-0.4) x10^3/uL Sodium 137 (137-145) mmol/L Potassium 3.9 (3.5-5.1) mmol/L Chloride 96 L (98-107) mmol/L Carbon Dioxide 27 (22-30) mmol/L Anion Gap 17.4 H (5-15) MEQ/L BUN 15 (9-20) mg/dL Creatinine 0.79 (0.66-1.25) mg/dL Estimated GFR > 60.0 ML/MIN Glucose 172 H (74-106) mg/dL POC Glucometer (74 to 106) mg/dL Hemoglobin A1c (4.5-6.0) % Lactic Acid (0.4-2.0) Calcium 9.2 (8.4-10.2) mg/dL Magnesium 2.0 (1.6-2.3) mg/dL Total Bilirubin 1.70 H (0.2-1.3) mg/dL AST 20 (17-59) U/L ALT 17 (0-50) U/L Alkaline Phosphatase 81 (38-126) U/L Troponin I < 0.012 (0.000-0.034) ng/mL NT-Pro-B Natriuret Pep 376 (0-900) pg/mL Serum Total Protein 8.4 H (6.3-8.2) g/dL Albumin 4.3 (3.5-5.0) g/dL Influenza Type A Ag (NEGATIVE) Influenza Type B Ag (NEGATIVE) RSV (PCR) (Negative) SARS-CoV-2 (PCR) (NEGATIVE) 11/21/21 11/21/21 11/21/21 Range/Units 13:50 13:55 17:33 WBC (4.0-10.5) x10^3/uL RBC (4.1-5.6) x10^6/uL Hgb (12.5-18.0) g/dL Hct (42-50) % MCV (78-100) fL MCH (26-32) pg MCHC (32-36) g/dL RDW (11.5-14.0) % Plt Count (150-450) x10^3/uL MPV (7.5-11.0) fL Gran % (36.0-66.0) % Immature Gran % (Auto) (0.00-0.4) % Nucleat RBC Rel Count (0.00-0.1) % Eos # (Auto) (0-0.5) x10^3/uL Immature Gran # (Auto) (0.00-0.03) x10^3u/L Absolute Lymphs (auto) (1.0-4.6) x10^3/uL Absolute Monos (auto) (0.0-1.3) x10^3/uL Absolute Nucleated RBC (0.00-0.01) x10^3u/L Lymphocytes % (24.0-44.0) % Monocytes % (0.0-12.0) % Eosinophils % (0.00-5.0) % Basophils % (0.0-0.4) % Absolute Granulocytes (1.4-6.9) x10^3/uL Basophils # (0-0.4) x10^3/uL Sodium (137-145) mmol/L Potassium (3.5-5.1) mmol/L Chloride (98-107) mmol/L Carbon Dioxide (22-30) mmol/L Anion Gap (5-15) MEQ/L BUN (9-20) mg/dL Creatinine (0.66-1.25) mg/dL Estimated GFR ML/MIN Glucose (74-106) mg/dL POC Glucometer (74 to 106) mg/dL Hemoglobin A1c (4.5-6.0) % Lactic Acid 1.5 (0.4-2.0) Calcium (8.4-10.2) mg/dL Magnesium (1.6-2.3) mg/dL Total Bilirubin (0.2-1.3) mg/dL AST (17-59) U/L ALT (0-50) U/L Alkaline Phosphatase (38-126) U/L Troponin I < 0.012 (0.000-0.034) ng/mL NT-Pro-B Natriuret Pep (0-900) pg/mL Serum Total Protein (6.3-8.2) g/dL Albumin (3.5-5.0) g/dL Influenza Type A Ag NEGATIVE (NEGATIVE) Influenza Type B Ag NEGATIVE (NEGATIVE) RSV (PCR) NEGATIVE (Negative) SARS-CoV-2 (PCR) NEGATIVE (NEGATIVE) 11/21/21 11/21/21 11/22/21 Range/Units 20:44 21:52 05:30 WBC (4.0-10.5) x10^3/uL RBC (4.1-5.6) x10^6/uL Hgb (12.5-18.0) g/dL Hct (42-50) % MCV (78-100) fL MCH (26-32) pg MCHC (32-36) g/dL RDW (11.5-14.0) % Plt Count (150-450) x10^3/uL MPV (7.5-11.0) fL Gran % (36.0-66.0) % Immature Gran % (Auto) (0.00-0.4) % Nucleat RBC Rel Count (0.00-0.1) % Eos # (Auto) (0-0.5) x10^3/uL Immature Gran # (Auto) (0.00-0.03) x10^3u/L Absolute Lymphs (auto) (1.0-4.6) x10^3/uL Absolute Monos (auto) (0.0-1.3) x10^3/uL Absolute Nucleated RBC (0.00-0.01) x10^3u/L Lymphocytes % (24.0-44.0) % Monocytes % (0.0-12.0) % Eosinophils % (0.00-5.0) % Basophils % (0.0-0.4) % Absolute Granulocytes (1.4-6.9) x10^3/uL Basophils # (0-0.4) x10^3/uL Sodium (137-145) mmol/L Potassium (3.5-5.1) mmol/L Chloride (98-107) mmol/L Carbon Dioxide (22-30) mmol/L Anion Gap (5-15) MEQ/L BUN (9-20) mg/dL Creatinine (0.66-1.25) mg/dL Estimated GFR ML/MIN Glucose (74-106) mg/dL POC Glucometer 377 H (74 to 106) mg/dL Hemoglobin A1c 6.92 H (4.5-6.0) % Lactic Acid (0.4-2.0) Calcium (8.4-10.2) mg/dL Magnesium (1.6-2.3) mg/dL Total Bilirubin (0.2-1.3) mg/dL AST (17-59) U/L ALT (0-50) U/L Alkaline Phosphatase (38-126) U/L Troponin I 0.013 (0.000-0.034) ng/mL NT-Pro-B Natriuret Pep (0-900) pg/mL Serum Total Protein (6.3-8.2) g/dL Albumin (3.5-5.0) g/dL Influenza Type A Ag (NEGATIVE) Influenza Type B Ag (NEGATIVE) RSV (PCR) (Negative) SARS-CoV-2 (PCR) (NEGATIVE) 11/22/21 11/22/21 11/22/21 Range/Units 05:35 05:35 07:24 WBC 9.8 (4.0-10.5) x10^3/uL RBC 4.87 (4.1-5.6) x10^6/uL Hgb 12.6 (12.5-18.0) g/dL Hct 41.6 L (42-50) % MCV 85.4 (78-100) fL MCH 25.9 L (26-32) pg MCHC 30.3 L (32-36) g/dL RDW 14.6 H (11.5-14.0) % Plt Count 296 (150-450) x10^3/uL MPV 10.9 (7.5-11.0) fL Gran % 88.0 H (36.0-66.0) % Immature Gran % (Auto) 0.4 (0.00-0.4) % Nucleat RBC Rel Count 0.0 (0.00-0.1) % Eos # (Auto) 0 (0-0.5) x10^3/uL Immature Gran # (Auto) 0.04 H (0.00-0.03) x10^3u/L Absolute Lymphs (auto) 0.66 L (1.0-4.6) x10^3/uL Absolute Monos (auto) 0.46 (0.0-1.3) x10^3/uL Absolute Nucleated RBC 0.00 (0.00-0.01) x10^3u/L Lymphocytes % 6.7 L (24.0-44.0) % Monocytes % 4.7 (0.0-12.0) % Eosinophils % 0.0 (0.00-5.0) % Basophils % 0.2 (0.0-0.4) % Absolute Granulocytes 8.62 H (1.4-6.9) x10^3/uL Basophils # 0.02 (0-0.4) x10^3/uL Sodium 139 (137-145) mmol/L Potassium 4.2 (3.5-5.1) mmol/L Chloride 99 (98-107) mmol/L Carbon Dioxide 29 (22-30) mmol/L Anion Gap 15.5 H (5-15) MEQ/L BUN 22 H (9-20) mg/dL Creatinine 0.75 (0.66-1.25) mg/dL Estimated GFR > 60.0 ML/MIN Glucose 194 H (74-106) mg/dL POC Glucometer 177 H (74 to 106) mg/dL Hemoglobin A1c (4.5-6.0) % Lactic Acid (0.4-2.0) Calcium 8.8 (8.4-10.2) mg/dL Magnesium (1.6-2.3) mg/dL Total Bilirubin 1.10 (0.2-1.3) mg/dL AST 21 (17-59) U/L ALT 18 (0-50) U/L Alkaline Phosphatase 73 (38-126) U/L Troponin I (0.000-0.034) ng/mL NT-Pro-B Natriuret Pep (0-900) pg/mL Serum Total Protein 7.8 (6.3-8.2) g/dL Albumin 4.0 (3.5-5.0) g/dL Influenza Type A Ag (NEGATIVE) Influenza Type B Ag (NEGATIVE) RSV (PCR) (Negative) SARS-CoV-2 (PCR) (NEGATIVE) Accuchecks Date 11/21/21 Time 20:55 - Radiology Impressions Radiology Exams & Impressions: Radiology Procedures Category Date Time Status CHEST 1 VIEW (PORTABLE) Stat Exams 11/21/21 13:43 Completed CHEST WITH CONTRAST [CT] Stat Exams 11/21/21 16:19 Completed - Other Procedures and Tests Respiratory Therapy 11/21/21 13:41 Respiratory Therapy Assessment DAILY 11/21/21 17:42 Oxygen Nasal Cannula 4 lpm 11/21/21 19:11 Flutter Therapy UD Assessment/Plan (1) Respiratory failure Current Visit: Yes Status: Acute Qualifiers: Chronicity: acute Respiratory failure complication: hypoxia Qualified Code(s): J96.01 - Acute respiratory failure with hypoxia Assessment & Plan: improving Code(s): J96.90 - RESPIRATORY FAILURE, UNSP, UNSP W HYPOXIA OR HYPERCAPNIA (2) PNA (pneumonia) Current Visit: Yes Status: Acute Qualifiers: Pneumonia type: due to unspecified organism Laterality: bilateral Assessment & Plan: IV fluids ,Zithromax,Rocephin- RT following Code(s): J18.9 - PNEUMONIA, UNSPECIFIED ORGANISM (3) DM2 (diabetes mellitus, type 2) Current Visit: Yes Status: Chronic Qualifiers: Diabetes mellitus oil heaterman insulin use: with oil heaterman use (4) Presence of stent in coronary artery in patient with coronary artery disease Current Visit: Yes Status: Chronic Assessment & Plan: stable Code(s): I25.10 - ATHSCL HEART DISEASE OF [place] CORONARY ARTERY W/O ANG PCTRS; Z95.5 - PRESENCE OF CORONARY ANGIOPLASTY IMPLANT AND GRAFT (5) AAA (abdominal aortic aneurysm) without rupture Current Visit: Yes Status: Chronic Assessment & Plan: followed by Dr Deonna Orozco Code(s): I71.40 - ABDOMINAL AORTIC ANEURYSM WITHOUT RUPTURE, UNSP
[2021-11-22] MEDS: HUMALOG SQ PRN ×2 (11:56→21:19)
[2021-11-22] MEDS: PATIENT OWN MEDICATION PO SCH (12:50)
[2021-11-22] MEDS: Zestril 5 MG PO SCH (21:14)
[2021-11-22] MEDS: ZOCOR 20MG PO SCH (21:15)
[2021-11-22] MEDS: PLAVIX Tablet PO SCH (21:16)
[2021-11-22] MEDS: Novolin N SQ SCH (21:16)
[2021-11-23] MEDS: solu-MEDROL 60 MG, Sterile H2O 10 ml 2 ML IV SCH ×6 (00:19→11:42)
[2021-11-23] MEDS: HUMALOG SQ PRN (08:45)
[2021-11-23] MEDS: ECOTRIN 81 MG PO SCH (08:46)
[2021-11-23] MEDS: PATIENT OWN MEDICATION PO SCH (08:47)
[2021-11-23] MEDS: Calcium 500MG W/Vit D Tablet PO SCH (08:47)
[2021-11-23] MEDS: Lopressor 25MG Tab PO SCH (08:47)
[2021-11-23] MEDS: PROTONIX 40 MG IV IV SCH (09:55)
[2021-11-23] MEDS: ROCEPHIN 2 Gm-D5w 50ML BAG** 2 G/50 ML IVPB IV SCH (09:56)
[2021-11-23] MEDS: Zithromax 500 MG/ 250 ML NaCl Premix 500 MG/250 ML IVPB IV SCH (09:56)
[2021-11-23 11:34] VITALS: BP 117/60; PULSE 77; O2SAT 92
--- NOTE | 2021-11-23 12:39 | PCM.DCORD ---
- Discharge Disposition: Home, Self-Care Condition: Stable Prescriptions: New Azithromycin [Zithromax [place]] 500 mg PO DAILY 3 Days #3 tablet Prednisone 10 mg [Deltasone 10 mg] See Rx Instructions .ROUTE .COMPLEX #24 tablet Continue Metformin HCl 500 mg [Glucophage 500 MG] 1,000 mg PO BIDWM Aspirin EC 81 mg [Ecotrin 81 mg] 81 mg PO DAILY Insulin NPH Human Isophane [Novolin N] 55 unit SQ HS lisinopriL [Zestril] 2.5 mg PO HS Dapagliflozin Propanediol [Farxiga] 5 mg PO DAILY Clopidogrel Bisulfate [Plavix] 75 mg PO HS Ca/D3/Mag/Zinc/Naomi/Mustapha/Mgbor [Caltrate 600-D3-Min Chew Tab] 1 tab PO DAILY Bisacodyl [Gentle Laxative] 5 mg PO DAILY PRN PRN Reason: Constipation Atorvastatin Calcium [Lipitor 40Mg] 40 mg PO HS Metoprolol Tartrate 25 mg [Lopressor 25MG Tab] 25 mg PO BID Instructions: Pneumonia, Adult (DC), Preventing Falls in Older Adults Follow up with: DOMINIQUE GABRIEL [Primary Care Provider] -
[2021-11-23] MEDS ORDERED: Glucophage 500 MG PO SCH (17:00)
== END 2021-11-23 13:35 | disposition home or self-care (01) ==
LOC: ED 13:06 → MED SURG 17:36
PROVIDERS: ADMIT Family Medicine; ATTEND Family Medicine
DX: J96.01 Acute respiratory failure with hypoxia (principal); J18.9 Pneumonia, unspecified organism; E11.9 Type 2 diabetes mellitus without complications; I25.10 Atherosclerotic heart disease of native coronary artery without angina pectoris; I10 Essential (primary) hypertension; E78.5 Hyperlipidemia, unspecified; Z95.5 Presence of coronary angioplasty implant and graft; I71.40 Abdominal aortic aneurysm, without rupture, unspecified; Z79.899 Other long term (current) drug therapy; Z20.828 Contact with and (suspected) exposure to other viral communicable diseases
CPT/HCPCS: 0241U; 36000; 36415; 71045; 71260; 80053; 82947; 83036; 83605; 83735; 83880; 84484; 85025; 87040; 93005; 93041; 94640; 94667; 94760; 96374; 99285; 93268; 96365; 96367; 96375; J0456; J0696; J1817; J2405; J2930; A9270-GY; G0378

== ENCOUNTER 2024-02-16 19:34 | Emergency (ER) | payer BC, MEDICARE ==
[2024-02-16 19:53] VITALS: TEMP 99.1
[2024-02-16] MEDS ORDERED: TYLENOL EXTRA STRENGTH 500 MG ONE (20:18)
[2024-02-16] MEDS: TYLENOL EXTRA STRENGTH 500 MG PO STA (20:19)
--- NOTE | 2024-02-16 20:19 | ERPHSYRPT ---
- History of Present Illness Time Seen by Provider: 02/16/24 19:40 Source: patient, family Exam Limitations: no limitations Patient Subjective Stated Complaint: pt states he has been short of breath prior to coming in. c/o fever, body aches for last 2-3 days Triage Nursing Assessment: pt alert and oriented, answers questions approp. pt ambulates to room with steady gait noted. respirations nonlabored with lungs cta bilat. skin hot and dry. occasional cough noted, pt states productive at home. denies chest pain Physician History: 63-year-old male with multiple medical problems including coronary artery disease, atrial fibrillation with pacemaker placement on Eliquis, hypertension, diabetes mellitus, COPD presented in the ER with 1 week history of sore throat, sinus/nasal congestion which actually got better and for the last couple of days having worsening cough and fever chills with a Tmax of 105 earlier today. Patient reports coughing up thick yellow-green sputum. Reports generalized aches and pains all over with soreness of her chest because of repeated coughing. No known sick contact. Allergies/Adverse Reactions: ciprofloxacin [From Cipro] Adverse Reaction (Intermediate, Verified 02/16/24 20:00) states he can use cipro eye gtts with no problems Home Medications: Atorvastatin Calcium [Lipitor 40Mg] 40 mg PO HS 11/21/21 [History] Dapagliflozin Propanediol [Farxiga] 10 mg PO DAILY 11/21/21 [History] Insulin NPH Human Isophane [Novolin N] 55 unit SQ HS 11/21/21 [History] Metformin HCl 500 mg [Glucophage 500 MG] 1,000 mg PO BIDWM 11/21/21 [History] Metoprolol Tartrate 25 mg [Lopressor 25MG Tab] 25 mg PO BID 11/21/21 [His tory] lisinopriL [Zestril] 2.5 mg PO HS 11/21/21 [History] Albuterol 8 gm Mdi Hfa [Ventolin Hfa MDI] 8 gm IH Q4-6HPRN PRN 02/16/24 [History] Apixaban [Eliquis] 5 mg PO BID 02/16/24 [History] Calcium Carb/Mag Ox/Zinc Sulf [Vwm-Pfa-Ykfx 334-134-5 mg Tab] 1 each PO DAILY 02/16/24 [History] Mecobalamin [B12 Active] 1,000 mcg PO DAILY 02/16/24 [History] Naproxen 375 mg [Naprosyn 375 mg] 375 mg PO BID 02/16/24 [History] Hx Tetanus, Diphtheria Vaccination/Date Given: No Hx Influenza Vaccination/Date Given: No Hx Pneumococcal Vaccination/Date Given: No Immunizations Up to Date: No Travel Risk - International Travel Have you traveled outside of the country in past 3 weeks: No - Emerging Infectious Disease Are you exhibiting symptoms associated with any current EIDs: Yes Symptoms: Cough: New Onset, Fever, Headaches/Body Aches/ - Review of Systems Constitutional: Fever, Chills, Fatigue Ears, Nose, & Throat: Nose Congestion, Sinus Drainage, Throat Swelling Respiratory: Cough Cardiac: No Symptoms Abdominal/Gastrointestinal: No Symptoms Genitourinary Symptoms: No Symptoms Musculoskeletal: Myalgias Neurological: Headache Psychological: No Symptoms Immunological/Allergic: No Symptoms - Past Medical History Cardiac History: Arrhythmia, Coronary Artery Disease, Hypertension Respiratory History: COPD Endocrine Medical History: Diabetes Type II Other Medical History: possible seizure x2- none for years. a-fib - Past Surgical History Past Surgical History: Yes Cardiac: Cardiac Catheterization, Cardiac Stent Other Surgical History: aaa repair, cardiac stent, pacemaker - Social History Smoking Status: Smoker, status unknown Exposure to second hand smoke: No Drug Use: none Patient Lives Alone: No - Social Determinants of Health Do you worry about a steady place to live?: No Do you have any problems with any of the following?: No known problems In the past 12 months,have you had to go without utilities?: No Transportation Issues: No Has anyone in your support network made you feel unsafe?: No Have you or anyone in your house had to go without enough: No - Nursing Vital Signs Nursing Vital Signs: Initial Vital Signs Pulse Rate 108 H 02/16/24 19:38 Respiratory Rate 27 H 02/16/24 19:38 Blood Pressure 134/71 02/16/24 19:38 Pain Scale Pain Intensity 4 - Physical Exam General Appearance: no apparent distress, alert Eye Exam: PERRL/EOMI Ears, Nose, Throat Exam: moist mucous membranes, pharyngeal erythema Neck Exam: normal inspection, non-tender, supple, full range of motion, No meningismus Respiratory Exam: normal breath sounds, lungs clear Cardiovascular Exam: regular rate/rhythm, normal heart sounds Gastrointestinal/Abdomen Exam: soft, normal bowel sounds, No tenderness Back Exam: normal inspection, decreased range of motion Extremity Exam: normal inspection, normal range of motion Neurologic Exam: alert, oriented x 3, cooperative Skin Exam: normal color SpO2 Interpretation: normal SpO2: 95 O2 Delivery: Room Air - Course EKG Interpreted by Me: RATE ([id number]), Sinus Tach, Left [place] Deviation, LAFB, Right Bundle Branch Block, Non-specific ST Changes Ordered Tests: Active Orders 24 hr Category Date Time Status CHEST 1 VIEW (PORTABLE) Stat Exams 02/16/24 20:28 Taken BLOOD CULTURE Stat Lab 02/16/24 21:35 Received CBC W DIFF Stat Lab 02/16/24 20:00 Completed CMP Stat Lab 02/16/24 20:00 Completed Lactic Acid Stat Lab 02/16/24 21:00 Completed MAGNESIUM Stat Lab 02/16/24 20:00 Completed NT PRO BNPII Stat Lab 02/16/24 20:00 Completed TROPONIN Q4H Lab 02/16/24 20:00 Completed TROPONIN Q4H Lab 02/17/24 00:15 Ordered TROPONIN Q4H Lab 02/17/24 04:15 Ordered Medication Summary Discontinued Medications Generic Name Dose Route Start Last Admin Trade Name Nathanq PRN Reason Stop Dose Admin Acetaminophen 1,000 mg 02/16/24 20:14 02/16/24 20:19 Acetaminophen 500 Mg Tablet PO 02/16/24 20:15 1,000 mg STAT STA Administration Acetaminophen Confirm 02/16/24 20:18 Acetaminophen 500 Mg Tablet Administered 02/16/24 20:19 Dose 1,000 mg .ROUTE .STK-MED ONE Ceftriaxone Sodium 2 gm in 100 mls @ 200 mls/hr 02/16/24 21:07 02/16/24 22:08 Rocephin 2 Gm/100 Ml Nacl IV 02/16/24 21:36 Infused STAT ONE Infusion Azithromycin 500 mg in 250 mls @ 250 mls/hr 02/16/24 21:07 02/16/24 22:06 Zithromax 500 Mg/ 250 Ml Nacl Premix IV 02/16/24 22:06 250 ml/hr STAT STA 250 mls/hr Administration Azithromycin Confirm 02/16/24 21:13 Zithromax 500 Mg/ 250 Ml Nacl Premix Administered 02/16/24 21:14 Dose 500 mg in 250 mls @ IV .STK-MED ONE Ceftriaxone Sodium Confirm 02/16/24 21:13 Rocephin 2 Gm/100 Ml Nacl Administered 02/16/24 21:14 Dose 2 gm in 100 mls @ ud IV .STK-MED ONE Lab/Rad Data: Laboratory Result Diagrams 02/16/24 20:00 02/16/24 20:00 Laboratory Results 02/16/24 02/16/24 02/16/24 Range/Units 21:00 20:25 20:00 WBC (4.23-9.07) x10^3/uL RBC (4.63-6.08) x10^6/uL Hgb (13.7-17.5) g/dL Hct (40.1-51.0) % MCV (79.0-92.2) fL MCH (25.7-32.2) pg MCHC (32.3-36.5) g/dL RDW (11.6-14.4) % Plt Count (163-337) x10^3/uL MPV (9.4-12.4) fL Gran % (34.0-67.9) % Immature Gran % (Auto) (0.001-0.429) % Nucleat RBC Rel Count (0.00-0.2) % Eos # (Auto) (0.04-0.54) x10^3/uL Immature Gran # (Auto) (0.001-0.031) x10^3u/L Absolute Lymphs (auto) (1.32-3.57) x10^3/uL Absolute Monos (auto) (0.30-0.82) x10^3/uL Absolute Nucleated RBC (0.00-0.012) x10^3u/L Lymphocytes % (21.8-53.1) % Monocytes % (5.3-12.2) % Eosinophils % (0.8-7.0) % Basophils % (0.2-1.2) % Absolute Granulocytes (1.78-5.38) x10^3/uL Basophils # (0.01-0.08) x10^3/uL Sodium (135-145) mmol/L Potassium (3.5-5.1) mmol/L Chloride (98-107) mmol/L Carbon Dioxide (22-30) mmol/L Anion Gap (5-15) MEQ/L BUN (9-20) mg/dL Creatinine (0.66-1.25) mg/dL Estimated GFR ML/MIN Glucose (74-106) mg/dL Lactic Acid 1.9 (0.4-2.0) Calcium (8.4-10.2) mg/dL Magnesium (1.6-2.3) mg/dL Total Bilirubin (0.2-1.3) mg/dL AST (17-59) U/L ALT (0-50) U/L Alkaline Phosphatase (38-126) U/L Troponin I 0.027 (0.000-0.033) ng/mL NT-Pro-B Natriuret Pep (<300) pg/mL Serum Total Protein (6.3-8.2) g/dL Albumin (3.5-5.0) g/dL Influenza Type A Ag NEGATIVE (NEGATIVE) Influenza Type B Ag NEGATIVE (NEGATIVE) RSV (PCR) NEGATIVE (NEGATIVE) SARS-CoV-2 (PCR) NEGATIVE (NEGATIVE) 02/16/24 02/16/24 Range/Units 20:00 20:00 WBC 20.6 H (4.23-9.07) x10^3/uL RBC 4.98 (4.63-6.08) x10^6/uL Hgb 12.1 L (13.7-17.5) g/dL Hct 39.4 L (40.1-51.0) % MCV 79.1 (79.0-92.2) fL MCH 24.3 L (25.7-32.2) pg MCHC 30.7 L (32.3-36.5) g/dL RDW 16.5 H (11.6-14.4) % Plt Count 272 (163-337) x10^3/uL MPV 10.8 (9.4-12.4) fL Gran % 85.1 H (34.0-67.9) % Immature Gran % (Auto) 1.3 H (0.001-0.429) % Nucleat RBC Rel Count 0.0 (0.00-0.2) % Eos # (Auto) 0.01 L (0.04-0.54) x10^3/uL Immature Gran # (Auto) 0.27 H (0.001-0.031) x10^3u/L Absolute Lymphs (auto) 0.70 L (1.32-3.57) x10^3/uL Absolute Monos (auto) 2.06 H (0.30-0.82) x10^3/uL Absolute Nucleated RBC 0.00 (0.00-0.012) x10^3u/L Lymphocytes % 3.4 L (21.8-53.1) % Monocytes % 10.0 (5.3-12.2) % Eosinophils % 0.0 L (0.8-7.0) % Basophils % 0.2 (0.2-1.2) % Absolute Granulocytes 17.49 H (1.78-5.38) x10^3/uL Basophils # 0.04 (0.01-0.08) x10^3/uL Sodium 139 (135-145) mmol/L Potassium 3.9 (3.5-5.1) mmol/L Chloride 103 (98-107) mmol/L Carbon Dioxide 21 L (22-30) mmol/L Anion Gap 18.5 H (5-15) MEQ/L BUN 18 (9-20) mg/dL Creatinine 0.98 (0.66-1.25) mg/dL Estimated GFR 85.6 ML/MIN Glucose 110 H (74-106) mg/dL Lactic Acid (0.4-2.0) Calcium 9.2 (8.4-10.2) mg/dL Magnesium 1.6 (1.6-2.3) mg/dL Total Bilirubin 1.30 (0.2-1.3) mg/dL AST 26 (17-59) U/L ALT 22 (0-50) U/L Alkaline Phosphatase 70 (38-126) U/L Troponin I (0.000-0.033) ng/mL NT-Pro-B Natriuret Pep 371 (<300) pg/mL Serum Total Protein 7.4 (6.3-8.2) g/dL Albumin 4.1 (3.5-5.0) g/dL Influenza Type A Ag (NEGATIVE) Influenza Type B Ag (NEGATIVE) RSV (PCR) (NEGATIVE) SARS-CoV-2 (PCR) (NEGATIVE) - Progress Progress: improved Air Movement: good Progress Note: 02/16/24 22:53 63-year-old with multiple medical problems is evaluated in the ER for flulike symptoms which started with URI and gradually involving the lower respiratory with fever and productive cough. Patient is not in any distress, oxygen saturation in mid to upper 90s, and low- grade temperature and is given Tylenol for symptomatic relief. Chest x-ray showed bilateral airspace disease. Has a white count of 20, chemistries fairly unremarkable and negative troponin. EKG is sinus tach with no ST elevations. I have given a dose of Rocephin and Zithromax IV. Discussed about observation admission versus going home and patient preferred to go home and does have inhaler and nebulizer at home. He is not in any distress, I would continue with Omnicef and Zithromax to go home. Discussed signs symptoms of worsening needing return to ER which he seems understanding. Stable for discharge. Blood Culture(s) Obtained: Yes Antibiotics given: Yes Counseled pt/family regarding: lab results, diagnosis, rad results Medical Desision Making - Independent Historian Additional History obtained from: Spouse - Diagnostic Testing Diagnostic test were ordered, analyzed, and reviewed by me: Yes Radiological Interpretation: Interpreted by me, Reviewed by me - Risk of complications The pt has a mod risk of morbidity or mortality based on: Need for prescription drug management - Departure Departure Disposition: Home Clinical Impression: Bilateral pneumonia, Leukocytosis Condition: Stable Critical Care Time: No Referrals: DOMINIQUE GABRIEL [Primary Care Provider] - Follow up with PCP 1 day Instructions: Pneumonia, Adult (DC) Additional Instructions: Continue with inhaler/nebulizer as recommended. Take Tylenol as needed for fever, aches and pains. Drink plenty of fluids to keep yourself well-hydrated. Follow-up with primary care physician for reevaluation. Return to ER for worsening cough, persistent high-grade fever or if develop difficulty breathing etc. Prescriptions: Cefdinir [Omnicef 300 mg] 300 mg PO BID 10 Days #20 cap Azithromycin 250 mg [Zithromax 250 MG TABLET] 250 mg PO DAILY 4 Days #4 tablet
[2024-02-16 20:21] LABS: Absolute Neutrophil Ct (ANC) 17.49 x10^3/uL (1.78-5.38); BASOPHIL % 0.2 % (0.2-1.2); Basophil (Absolute #) 0.04 x10^3/uL (0.01-0.08); Eosinophil (Absolute #) 0.01 x10^3/uL (0.04-0.54); Hematocrit 39.4 % (40.1-51.0); Hemoglobin 12.1 g/dL (13.7-17.5); IMMATURE GRAN # 0.27 x10^3u/L (0.001-0.031); IMMATURE GRAN % 1.3 % (0.001-0.429); Lymphocytes % 3.4 % (21.8-53.1); Mean Cell Volume 79.1 fL (79.0-92.2); Mean Corpuscular Hemoglobin 24.3 pg (25.7-32.2); Mean Corpuscular Hgb Concent. 30.7 g/dL (32.3-36.5); Mean Platelet Volume 10.8 fL (9.4-12.4); Monocyte (Absolute #) 2.06 x10^3/uL (0.30-0.82); Neutrophil % 85.1 % (34.0-67.9); Platelet Count 272 x10^3/uL (163-337); Red Blood Count 4.98 x10^6/uL (4.63-6.08); Red Cell Distribution Width 16.5 % (11.6-14.4); White Blood Count 20.6 x10^3/uL (4.23-9.07)
[2024-02-16 20:45] LABS: ALBUMIN 4.1 g/dL (3.5-5.0); ANION GAP 18.5 MEQ/L (5-15); BILIRUBIN,TOTAL 1.3 mg/dL (0.2-1.3); Calcium 9.2 mg/dL (8.4-10.2); Creatinine 1 0.98 mg/dL (0.66-1.25); EST GLOMERULAR FILTRATION RATE 85.6 ML/MIN; MAGNESIUM 1.6 mg/dL (1.6-2.3); Potassium 3.9 mmol/L (3.5-5.1); Total Protein 7.4 g/dL (6.3-8.2)
[2024-02-16 21:08] LABS: INFLUENZA A NEGATIVE (NEGATIVE); INFLUENZA B NEGATIVE (NEGATIVE); RESPIRATORY SYNCTIAL VIRUS NEGATIVE (NEGATIVE); SARS-CoV-2 Xpert Express NEGATIVE (NEGATIVE)
[2024-02-16] MEDS ORDERED: ROCEPHIN 2 GM/100 ML NACL 2 GM/100 ML IVPB IV ONE (21:13)
[2024-02-16] MEDS ORDERED: Zithromax 500 MG/ 250 ML NaCl Premix 500 MG/250 ML IVPB IV ONE (21:13)
[2024-02-16] MEDS: ROCEPHIN 2 GM/100 ML NACL 2 GM/100 ML IVPB IV ONE (21:16)
[2024-02-16] MEDS: Zithromax 500 MG/ 250 ML NaCl Premix 500 MG/250 ML IVPB IV STA (22:06)
[2024-02-16 22:58] VITALS: O2SAT 95
[2024-02-16 23:23] VITALS: BP 104/65; PULSE 85; RESP 19
--- NOTE | 2024-02-17 08:42 | XRAY ---
Indication: Cough. Fever and congestion. Comparison: November 11, 2022 Portable apical lordotic chest again demonstrates COPD. New left midlung groundglass airspace disease without consolidation/large effusion. Heart not enlarged again with left pacemaker. Bony thorax intact again with osteopenia and degenerative changes.
== END 2024-02-16 23:33 | disposition home or self-care (01) ==
LOC: ED 19:34
DX: J18.9 Pneumonia, unspecified organism (principal); D72.829 Elevated white blood cell count, unspecified; R50.9 Fever, unspecified; R05.1 Acute cough; I10 Essential (primary) hypertension; E11.9 Type 2 diabetes mellitus without complications; Z79.01 Long term (current) use of anticoagulants; Z79.84 Long term (current) use of oral hypoglycemic drugs; Z79.4 Long term (current) use of insulin; Z79.899 Other long term (current) drug therapy
CPT/HCPCS: 0241U; 36415; 71045; 80053; 83605; 83735; 83880; 84484; 85025; 87040; 96365; 96374; 99285; 99284; J0456; J0696; A9270-GY